=== PATIENT | female | born 1955 | race American Indian/Alaskan Native ===

== ENCOUNTER 2018-06-23 06:19 | Day surgery (SDC) | payer MEDICARE ==
[2018-06-23] MEDS ORDERED: ECOTRIN PO ONE (06:36)
[2018-06-23] MEDS ORDERED: NACL 0.9% 500 ML 500 ML IV SCH (07:00)
[2018-06-23] MEDS ORDERED: HEPARIN/NS 5000 UNIT/500ML(CATH LAB) 1,000 ML IR ONE (08:19)
[2018-06-23] MEDS: NITROGLYCERIN SYRINGE 3 ML ONE ×2 (08:33→08:54)
[2018-06-23] MEDS: VERSED ONE ×2 (08:40→08:43)
[2018-06-23] MEDS: SUBLIMAZE ONE ×2 (08:40→08:43)
[2018-06-23] MEDS: XYLOCAINE 2% INFILTRATI ONE ×2 (08:41→08:52)
[2018-06-23] MEDS: HEPARIN 10,000 UNITS/10 ML ONE ×2 (08:43→08:54)
[2018-06-23] MEDS: CALAN ONE ×2 (08:43→08:54)
--- NOTE | 2018-06-23 09:39 | Short Stay Summary ---
Short Stay Documentation Date of service: 06/23/18 - History H&P: obtained from office - Allergies and Medications Current Medications: Allergies No Known Allergies Allergy (Verified 12/08/14 15:17) Home Medications Medication Instructions Recorded Confirmed Last Taken Type Cosopt Pf Eye Drops 1 drop OU BID 12/08/14 06/23/18 06/22/18 06:00 History 1 drop Dexilant 60 mg PO DAILY 12/08/14 06/23/18 06/22/18 History 60mg Aspirin EC [Aspirin Enteric Coated 81 mg PO QDAY 06/23/18 06/23/18 05/05/18 History TAB] 81mg Atenolol-Chlorthalidone 100-25 1 tab PO DAILY 06/23/18 06/23/18 06/22/18 History 1 tab Brimonidine Tartrate [Alphagan P 1 drop INTRAOCULA TID 06/23/18 06/23/18 06/23/18 History 0.1%] 1 drop Cholecalciferol (Vitd3)/Vit K2 1 tab PO DAILY 06/23/18 06/23/18 06/22/18 History [Dosoquin Tablet] 1 tab Dorzolamide-Timolol 2%-0.5% 1 drop INTRAOCULA BID 06/23/18 06/23/18 06/23/18 History 1 drop Latanoprost 0.005% 1 drop INTRAOCULA HS 06/23/18 06/23/18 06/22/18 History 1 drop Netarsudil Mesylate [Rhopressa] 1 drop INTRAOCULA HS 06/23/18 06/23/18 06/22/18 History 1 drop methazolAMIDE [Methazolamide] 25 mg PO BID 06/23/18 06/23/18 06/22/18 History 25mg Active Medications Sodium Chloride (Nacl 0.9% 500 Ml) 500 mls @ 50 mls/hr IV DIRECT LAVONNE Stop: 06/23/18 16:59 Last Admin: 06/23/18 07:43 Dose: 50 mls/hr Documented by: Tramadol HCl (Ultram) 50 mg PO Q4H PRN PRN Reason: Pain, Mild (1-3) - Brief post op/procedure progress note Date of procedure: 06/23/18 Pre-op diagnosis: angina Post-op diagnosis: same Procedure: see report Anesthesia: local Estimated blood loss: none Pathology: none - Disposition Condition at discharge: Good Disposition: [id number] TO HOME OR SELFCARE - Discharge Diagnoses (1) CAD (coronary artery disease) Status: Acute Qualifiers: Coronary Disease-Associated Artery/Lesion type: [place] artery [place] vs. transplanted heart: [place] heart Associated angina: with stable angina Qualified Code(s): I25.118 - Atherosclerotic heart disease of [place] coronary artery with other forms of angina pectoris (2) Hyperlipidemia Status: Chronic Qualifiers: Hyperlipidemia type: mixed hyperlipidemia Qualified Code(s): E78.2 - Mixed hyperlipidemia (3) Hypertension Status: Chronic Qualifiers: Hypertension type: essential hypertension Qualified Code(s): I10 - Essential (primary) hypertension Short Stay Discharge Plan Activity: advance as tolerated Diet: low fat, low cholesterol, low salt Wound: keep clean and dry Follow up with: GEOVANNA JIMENEZ DO [Other] - 7 Days Prescriptions: ISOSORBIDE MONOnitrate [Imdur ER] 30 mg PO QDAY #30 tablet
[2018-06-23] MEDS ORDERED: ULTRAM ONE (09:42)
[2018-06-23] MEDS ORDERED: ULTRAM PO PRN (10:00)
[2018-06-23] MEDS ORDERED: IMDUR PO SCH (10:00)
[2018-06-23] MEDS ORDERED: PLAVIX PO SCH (10:00)
--- NOTE | 2018-06-23 10:29 | Cardiac Catherization Report ---
LEFT HEART CATHETERIZATION CLINICAL INFORMATION: This is a 62-year-old female with known coronary artery disease, had a PCI in 2013 LAD for in-stent restenosis, had stent in the ramus, previously deployed several years, had a 50%-60% in-stent restenosis. RCA was patent and the patient presents back with recurrent chest pain with a cardiac PET was technically limited. Despite medications, on beta blockers having exertional angina at times, she is here for left heart catheterization. Left heart cath was done under moderate sedation, started at 8:43 a.m. and finished at 9:07 a.m. Total sedation time of 24 minutes, 1 mg Versed, 50 mcg fentanyl. Left heart catheterization performed via the right radial artery, sterile technique, local anesthesia, 6-Welsh radial sheath inserted. 1. Left system engaged with JL3.5 catheter. Left main is a large caliber vessel and is patent, mild luminal irregularties and bifurcates into large LAD, proximal is patent, mid stent is patent with mild in-stent restenosis around 10%. Rest of the LAD is patent, medium caliber. Diagonal 1 is 100%, diagonal 2 is small caliber and patent. Circumflex is a small caliber vessel, proximal is 100%. 2. Ramus is a medium caliber vessel with an ostial 80% and mid in-stent restenosis 90%. 3. RCA engaged with JR4, it is a large caliber vessel. It is patent with moderate to severe tortuosity from proximally and distally. PDA and PLV are small to medium caliber and patent. and gave extensive collaterals and the PDA feeding into the distal circumflex, which shows a small OM1 and distal circ feeding back into the proximal circumflex. 4. LV gram done in JOE and CASTANO view shows normal LV function, EF 55%. LVEDP of 20 mmHg. LV was 139. Aortic is 139/66. No gradient across the aortic valve on pullback. 5-Welsh catheters all taken over a guidewire, 6-Welsh radial sheath was discontinued, radial band applied. No hematoma, no bleeding. SUMMARY: Left main patent, LAD mid stent patent with the patient has LAD mild in-stent restenosis,mid to distal lad is patent. Diagonal 1 is 100%, circumflex small caliber vessel, proximal 100%, but extensive right to left collaterals with patent RCA feeding into a circumflex and ramus ostial has 80% with mid portion has in-stent restenosis 90% with normal LV function. In view of the angulation and between the LAD and the ramus and at this time, unsure the technical feasibility of doing this procedure. We will get a second opinion up in [place], but we will treat her medically and we will add nitrates to her medications and discussed in detail with the patient and the patient's family. [facility]# [id number] MOJGAN/ROXANN PARKER
[2018-06-23] MEDS ORDERED: PLAVIX PO ONE (10:30)
[2018-06-23 12:52] VITALS: BP 106/57
== END 2018-06-23 13:40 | disposition home or self-care (01) ==
LOC: CATHLABREC 06:19
PROVIDERS: ATTEND Internal Medicine
DX: T82.855A Stenosis of coronary artery stent, initial encounter (principal); I25.10 Atherosclerotic heart disease of native coronary artery without angina pectoris; E78.5 Hyperlipidemia, unspecified; I10 Essential (primary) hypertension; K21.9 Gastro-esophageal reflux disease without esophagitis; H40.9 Unspecified glaucoma; I11.0 Hypertensive heart disease with heart failure; I50.9 Heart failure, unspecified; F32.9 Major depressive disorder, single episode, unspecified; Z79.82 Long term (current) use of aspirin; Z79.899 Other long term (current) drug therapy; Z87.891 Personal history of nicotine dependence; Z98.49 Cataract extraction status, unspecified eye; Z90.81 Acquired absence of spleen; Z98.51 Tubal ligation status; Z84.1 Family history of disorders of kidney and ureter; Z86.73 Personal history of transient ischemic attack (TIA), and cerebral infarction without residual deficits; Z82.49 Family history of ischemic heart disease and other diseases of the circulatory system; Y83.8 Other surgical procedures as the cause of abnormal reaction of the patient, or of later complication, without mention of misadventure at the time of the procedure; Y92.89 Other specified places as the place of occurrence of the external cause
CPT/HCPCS: 93005; 93010; 93458; 99156; 99157; C1894; J1644; J2250; J3010; J7040; Q9967